=== PATIENT | female | born 1940 | race Caucasian/White ===

== ENCOUNTER 2018-05-01 06:36 | Day surgery (SDC) | payer OTHER ==
[2018-05-01] MEDS ORDERED: FENTAnyl 50 MCG/ML VIAL (08:37)
[2018-05-01] MEDS ORDERED: MIDAZOLAM 1 MG/ML 2 ML INJ (08:37)
== END 2018-05-01 16:27 | disposition home or self-care (01) ==
LOC: GIL 06:36
DX: K29.50 Unspecified chronic gastritis without bleeding (principal); I10 Essential (primary) hypertension
CPT/HCPCS: 88305; 88312